=== PATIENT | female | born 1995 | race Caucasian/White ===

== ENCOUNTER 2022-02-26 15:03 | Emergency (ER) | payer OTHER ==
[2022-02-26 15:41] LABS: HEMOGLOBIN 11.4 gm/dl (12.3-15.3); RED BLOOD COUNT 3.53 M/UL (4.00-5.10); WHITE BLOOD COUNT 8.5 K/UL (4.5-11.0)
[2022-02-26 16:01] LABS: BUN/CREATININE RATIO 22 (0-10)
== END 2022-02-26 18:01 | disposition home or self-care (01) ==
LOC: ER1 15:03
PROVIDERS: Physician Assistant Medical
DX: O23.42 Unspecified infection of urinary tract in pregnancy, second trimester (principal); N39.0 Urinary tract infection, site not specified; O99.332 Smoking (tobacco) complicating pregnancy, second trimester; F17.290 Nicotine dependence, other tobacco product, uncomplicated; Z3A.19 19 weeks gestation of pregnancy
CPT/HCPCS: 76815; 80053; 81001; 84702; 85025; 86900; 86901; 99284